=== PATIENT | male | born 1985 | race Two or more races ===

== ENCOUNTER 2018-05-14 13:30 | Emergency (ER) | payer OTHER ==
[~2018-05-14] VITALS: Ht 185.4 cm; Wt 90.7 kg
[2018-05-14] MEDS ORDERED: fentaNYL CITRATE 100 MCG/2 ML VL IV ONE ×2 (15:00→16:15)
[2018-05-14] MEDS ORDERED: MIDAZOLAM HCL 5 MG/ML-1ML VIAL IV ONE (15:00)
[2018-05-14 15:23] VITALS: BP 117/69
== END 2018-05-14 18:34 ==
LOC: ER 13:33 → EEVIPCON 13:33 → ER 18:34
DX: M24.412 Recurrent dislocation, left shoulder (principal)
CPT/HCPCS: 23650; 73030; 96374; 99285; J2250; J3010